=== PATIENT | male | born 1995 | race Caucasian/White ===

== ENCOUNTER 2017-10-14 10:52 | Emergency (ER) | payer OTHER ==
[~2017-10-14] VITALS: Ht 182.9 cm; Wt 86.4 kg
[2017-10-14 10:56] VITALS: BP 168/90; TEMP 98.7
[2017-10-14] MEDS ORDERED: FLONASEALLERGY NS (10:59)
[2017-10-14] MEDS ORDERED: AFRIN 15 ML15 ML NS (10:59)
[2017-10-14 11:41] LABS: CALCIUM 9.9 mg/dL (8.4-10.2); CREATININE, serum 1.03 mg/dL (0.66-1.25); POTASSIUM 4.2 mmol/L (3.4-5.0)
[2017-10-14 11:48] LABS: AMPHETAMINE URINE NEGATIVE; BARBITURATES URINE NEGATIVE; BENZODIAZEPINES URINE NEGATIVE; BUPRENORPHINE URINE NEGATIVE; METHADONE URINE NEGATIVE; OPIATES URINE NEGATIVE; OXYCODONE URINE NEGATIVE; PHENCYCLIDINE URINE NEGATIVE; PROPOXYPHENE URINE NEGATIVE; THC CANNABINOIDS URINE NEGATIVE; TRICYCLIC ANTIDEPRESS URINE NEGATIVE
[2017-10-14 12:44] VITALS: PULSE 96
== END 2017-10-14 12:45 | disposition home or self-care (01) ==
LOC: COL.ER 10:52
PROVIDERS: Emergency Medicine
DX: R53.81 Other malaise (principal)